=== PATIENT | male | born 1940 | race Caucasian/White ===

== ENCOUNTER → 2020-10-11 | Outpatient (CLI) | payer OTHER ==
[~2020-10-11] VITALS: Ht 177.8 cm; Wt 81.6 kg
[~2020-10-11] MED LIST: CYTOMEL 25 MCG25 MCG PO; DICLOFENAC SOD50 M1 PO; ZYLOPRIM300 MG PO
[2020-10-11 15:05] VITALS: BP 178/94
--- NOTE | 2020-10-11 15:13 | NUR ---
Pain Clinic Assessment: 1. History of Osteoarthritis: HANDS BACK History of Rheumatoid Arthritis: Not Applicable 2. Height: 5 ft. 10 in. 177.8 cm. Weight: 180.0 lb. oz. 81.648 kg. Patient's BMI: 25.8 3. Vital Signs: BP: 178/94 Pulse: 96 Resp: 16 Temp: 02 Sat: 100 ECG Mon: 4. Pain Intensity: 8 5. Fall Risk: Dizziness: Y Needs help standing or walking: N Fallen in the last 3 months: N Fall risk comments: 6. Patient on Blood Thinner: None 7. History of Hypertension: N 8. Opioid Therapy greater than 6 weeks: Opiate Contract Signed: 9. Risk Assessment Tool Provided: LOW-0 10. Functional Assessment Tool: 48/ 11. Recreational Drug Use: Never Drug Type: Tobacco Use: Former Smoker Tobacco Type: Amount or Packs/day: How Many Years: Alcohol Use: Yes Frequency: Daily Quant: 1-2
--- NOTE | 2020-10-12 08:22 | HPC ---
[facility] [place] [address] PAIN MANAGEMENT CONSULTATION Name: JULIANBUDDY HURLEY Room #: REG [facility] MMatthieu.#: [id number] Admission: 10/11/20 Attend Phys: Buddy Crouch DO Discharge: Date of : 41 Report #: [id number] THIS REPORT FOR: cc: Ashli Nova Elizabeth PA Johnson, James E. DO ~ DOC #: [id number] Buddy Crouch DO DATE OF SERVICE: 10/11/2020 CHIEF COMPLAINT: Low back pain, bilateral lower extremity pain with paresthesias. HISTORY OF PRESENT ILLNESS: As you know, the patient is a very pleasant 79-year-old male with intermittent history of low back pain, bilateral lower extremity pain with paresthesias. The patient states his pain began to intensify about one month ago. Prior to this exacerbation of symptoms, he was doing well with the use of [id number]-[id number] medications, rest, relaxation and physician-directed physical therapy done at home. He escalated his medications after pain began to increase to diclofenac and then on to ibuprofen 800 mg dose, but this was unhelpful. He was provided a Medrol Dosepak, which improved his symptoms initially, but as he weaned down on the medication, his pain intensified. Due to lack of improvement with conservative treatment options over the past couple of months, the patient was subsequently referred on to our clinic to discuss interventional treatment options to address lumbar radicular symptoms secondary to central canal stenosis. The patient reports his pain is continuous, steady and constant today. He describes the pain as burning, shooting, cramping, aching, pulling, throbbing, sharp, stabbing, numbness and tingling. Places current pain score at 8/10 daily average at 8/10, worst pain has been is 8/10. The patient states the pain is exacerbated with any type of movement, improves with lying down. He has been referred to our service to discuss treatment options for lumbar radiculopathy. PAST MEDICAL HISTORY: 1. Hypothyroidism. 2. Chronic colon problems. 3. Degenerative joint disease. 4. Osteoarthritis. PAST SURGICAL HISTORY: Transurethral resection of the prostate in 2017. SOCIAL HISTORY: The patient denies tobacco use. Denies IV or illicit drug use. Admits to occasional alcohol beverage. He is currently employed as a physician. He is working, not receiving workmen's compensation nor is he trying to obtain disability benefits. He is not in litigation in regards to pain. He is unaccompanied [place] [address] PAIN MANAGEMENT CONSULTATION Name: BUDDY CLAYTON Room #: REG EKTA Burch#: [id number] Admission: 10/11/20 Attend Phys: Buddy Crouch DO Discharge: Date of : 41 Report #: [id number] REVIEW OF SYSTEMS: Positive for low back pain, right lower extremity pain with paresthesias, heat and cold intolerance secondary to hypothyroidism, osteoarthritis pain and chronic colon problems. All other review of systems negative per 12-point review of systems other than those listed in history of present illness. Pain impact score 48/70, moderate to severe interference of daily activities secondary to pain. ALLERGIES: No known drug allergies. CURRENT MEDICATIONS: Cytomel 25 mg once a day, allopurinol 300 mg once a day, diclofenac 50 mg b.i.d. IMAGING: MRI lumbar spine obtained on 10/07/2020 shows L1-L2 with a small disk bulge and endplate spurring, mild facet and ligamentum flavum hypertrophy leading to mild to moderate foraminal narrowing. No central canal stenosis. L2-L3 shows mild disk bulging, mild facet arthropathy, ligamentum flavum hypertrophy, mild narrowing of the central canal. L3-L4 shows disk bulge, endplate spurring, moderate facet and ligamentum flavum hypertrophy, moderate to severe central canal stenosis and lateral recess stenosis bilaterally. The thecal sac measures 6 mm. L4-L5, there is anterolisthesis and unroofing of the disk with marked facet and ligamentum flavum hypertrophy. Fluid in the joints is noted. Central canal was severely compressed to 5 mm, lateral recess narrowing bilaterally, foraminal narrowing is high-grade as well. L5-S1 disk bulge, mild facet arthropathy, moderate bilateral neural foraminal narrowing, central canal measuring 1.2 cm. PQRS: The patient has known arthritic changes of the lumbar spine, bilateral hands. No rheumatoid arthritis, placing current pain score at 8/10. He is not a fall risk, has not had a fall in last 3 months. He is not on blood thinners nor is he treated for hypertension. He is not on any opioids, has a low opiate addiction potential. Pain impact is 48 of 70. Moderate to severe interference of daily activities secondary to pain. PHYSICAL EXAMINATION: VITAL SIGNS: Blood pressure 178/94, pulse 96, respiratory rate 16 and unlabored. The patient 100% on room air. Height 5 feet 10 inches tall, weight 180 pounds, BMI calculated 25.8. GENERAL: Well-developed, well-nourished, well-hydrated 79-year-old male appearing his stated age. He is placing current pain score at 8/10. HEENT: Normocephalic, atraumatic. Pupils equal, round and responsive. His speech is fluent. The patient is wearing a mask in compliance with COVID-19 regulations. LUNGS: Appear clear. There is no audible wheezing, rhonchi or cough. CARDIOVASCULAR: Regular. No appreciable gallop, no rub. EXTREMITIES: Show no clubbing, no cyanosis and no edema. [facility] [address] [place] [address] PAIN MANAGEMENT CONSULTATION Name: BUDDY CLAYTON Room #: REG EKTA Burch#: [id number] Admission: 10/11/20 Attend Phys: Buddy Crouch DO Discharge: Date of : 41 Report #: [id number] MUSCULOSKELETAL: Lower extremity strength is symmetrical 5/5. Giveaway strength noted on the right when compared to left. This is due to pain generation. Seated straight leg raising positive right. Supine straight leg raising positive right. Fabere's test is negative. Modified Gaenslen's positive for axial low back pain. Gait is antalgic and somewhat shuffling. Stance is slightly forward flexed lumbar spine, loss of lordotic curvature. Intact to light touch from L1 through S2 dermatomes. Deep tendon reflexes are symmetrical at patella and Achilles. ASSESSMENT: 1. Symptomatic lumbar radiculopathy. 2. Severe central canal stenosis of lumbar spine. 3. Severe neural foraminal stenosis of lumbar spine. 4. 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 5. Lumbosacral spondylosis with radiculopathy. 6. Facet arthropathy, lumbar spine. 7. Chronic intractable pain. PLAN: 1. Based on today's physical exam, the history, the patient has provided, the description the patient uses in regard to pain as well as the distribution of symptoms, the likely source of the patient's pain is central canal stenosis. This is confirmed with the MRI dated 10/07/2020, which shows severe central canal stenosis, severe lateral recess stenosis and severe foraminal stenosis at the L4-L5 level consistent with the patient's pain distribution. The patient and I discussed the findings of his MRI and how they correlate to his symptoms. After this discussion, we discussed the treatment options, following was discussed with the patient today. We discussed physical therapy, stretching exercises and core strengthening in a more formalized fashion. The patient has been doing physician directed home exercise for some time as well as utilizing qkps-bxa-lavzpnb medications, rest, relaxation, but has noted no significant pain improvement. He escalated his medication dosing to add a Medrol Dosepak. This did provide transient improvement in symptoms and the fact that he failed this, he was then sent on to our clinic. We discussed medication adjustments adding neuropathic pain medications for which he is not currently on these. We could include amitriptyline, nortriptyline, Cymbalta, Lyrica or gabapentin. We discussed lumbar epidural injection under fluoroscopic guidance for which the patient was referred to our clinic. We also discussed with the patient a spinal cord stimulator/dorsal column stimulator as a treatment course. We also discussed surgical options with the patient, decompressing the L4-L5 level. After reviewing the risks and benefits of all the proposed treatment options, the patient chose to begin with a lumbar epidural injection under fluoroscopic guidance. [address] [address] PAIN MANAGEMENT CONSULTATION Name: BUDDY CLAYTON Room #: REG CLYo Burch#: [id number] Admission: 10/11/20 Attend Phys: Buddy E. Miko, DO Discharge: Date of : 41 Report #: [id number] 2. The patient has been advised risks and benefits of a lumbar epidural injection. These risks include, but are not necessarily limited to bleeding, bruising, infection, worsening pain, no relief of pain, also risk of temporary or permanent muscle weakness, temporary or permanent nerve damage, possible paralysis, post-dural puncture headache and . The patient states understood and wished to proceed. 3. No medication changes made at today's visit. We recommend the patient continue current medical therapy as prior prescribed. 4. We plan to see the patient back in followup visit in 30 days. At that time, review the efficacy of today's epidural injection and determine next in the series of epidural injections might be necessary. 5. We wish to thank the referring physician for the opportunity to see this patient in consultation. We will keep you apprised of his response to treatment as we address lumbar radicular symptoms secondary to central canal stenosis. Again, we wish to thank you for the opportunity to see the patient in consultation. PROCEDURE NOTE DESCRIPTION OF PROCEDURE: L5-S1 interlaminar epidural steroid injection under fluoroscopic guidance using a right parasagittal approach. This is the first procedure of the first series that the patient is undergoing. After obtaining written consent, the patient was taken back to the fluoroscopy suite, placed in a prone position with pillow under the abdomen to decrease lumbar lordosis. The skin overlying the lumbosacral area was then prepped and draped in aseptic fashion. The L5-S1 vertebral interspace was then identified by AP fluoroscopy. The skin and subcutaneous tissue overlying the target site of injection was anesthetized with 3 mL 1% lidocaine. A 20-gauge 3-1/2 inch Tuohy needle was then advanced under fluoroscopic guidance towards the epidural space using a right parasagittal approach. The epidural space was identified using loss of resistance to air technique. After negative aspiration for heme or cerebrospinal fluid, a total of 1 mL of Omnipaque was injected. A lumbar epidurogram was confirmed using both AP and lateral fluoroscopy. After negative aspiration for heme or cerebrospinal fluid, 5 mL of a solution containing 2 mL 40 mg per mL 80 mg total triamcinolone along with 3 mL of preservative-free lidocaine 1% was injected in increments. Contrast spread was noted in the posterior epidural space. The needle was then retracted approximately half way and needle tract flushed with 1 mL of 1% lidocaine. Needle was then removed. There were no apparent sensory or motor deficits in the lower extremity following the procedure. A sterile bandage was placed over the injection site. The heart rate, pulse, oximetry and blood pressure were continuously monitored [address] [address] PAIN MANAGEMENT CONSULTATION Name: BUDDY CLAYTON Room #: REG [facility].#: [id number] Admission: 10/11/20 Attend Phys: Buddy Crouch DO Discharge: Date of : 41 Report #: [id number] after the procedure. There were no apparent complications. The patient tolerated the procedure well and was carefully escorted to the recovery room in stable condition. There were no apparent complications. After meeting discharge criteria, the patient was then discharged home. Buddy Crouch DO JEJ/EKT <ELECTRONICALLY SIGNED> By: Buddy Crouch DO 10/12/20 0822 [id number] [id number] Buddy Crouch DO /nt
== END | disposition home or self-care (01) ==
LOC: PAIN 07:59
PROVIDERS: ATTEND Anesthesiology Pain Medicine
DX: M47.27 Other spondylosis with radiculopathy, lumbosacral region (principal); M48.061 Spinal stenosis, lumbar region without neurogenic claudication; M47.26 Other spondylosis with radiculopathy, lumbar region; G89.29 Other chronic pain; M19.90 Unspecified osteoarthritis, unspecified site; E03.9 Hypothyroidism, unspecified; Z98.890 Other specified postprocedural states; Z79.899 Other long term (current) drug therapy

== ENCOUNTER → 2021-02-08 | Outpatient (CLI) | payer OTHER ==
[~2021-02-08] VITALS: Ht 177.8 cm; Wt 83.5 kg
[~2021-02-08] MED LIST changes: +ACID CONTROLLER20 MG PO
[2021-02-08 11:33] VITALS: BP 171/81
--- NOTE | 2021-02-08 11:37 | NUR ---
Pain Clinic Assessment: 1. History of Osteoarthritis: HANDS BACK History of Rheumatoid Arthritis: Not Applicable 2. Height: 5 ft. 10 in. 177.8 cm. Weight: 184.0 lb. oz. 83.462 kg. Patient's BMI: 26.4 3. Vital Signs: BP: 171/81 Pulse: 66 Resp: 16 Temp: 02 Sat: 99 ECG Mon: 4. Pain Intensity: 7 5. Fall Risk: Dizziness: N Needs help standing or walking: N Fallen in the last 3 months: N Fall risk comments: 6. Patient on Blood Thinner: None 7. History of Hypertension: N 8. Opioid Therapy greater than 6 weeks: Opiate Contract Signed: 9. Risk Assessment Tool Provided: LOW-0 10. Functional Assessment Tool: 48/ 11. Recreational Drug Use: Never Drug Type: Tobacco Use: Former Smoker Tobacco Type: Amount or Packs/day: How Many Years: Alcohol Use: Yes Frequency: Quant:
--- NOTE | 2021-02-14 08:14 | HPC ---
[facility] [place] [address] PAIN MANAGEMENT CONSULTATION Name: JULIANBUDDY HURLEY Room #: REG [facility] MMatthieu.#: [id number] Admission: 02/08/21 Attend Phys: Buddy Crouch DO Discharge: Date of : 41 Report #: [id number] THIS REPORT FOR: cc: Ashli Nova Elizabeth PA Johnson, James E. DO ~ DATE OF SERVICE: 02/08/2021 CHIEF COMPLAINT: Low back pain, bilateral lower extremity pain with paresthesias. HISTORY OF PRESENT ILLNESS: As you know, the patient is a very pleasant 80-year-old male who reports intermittent history of low back pain, bilateral lower extremity pain with paresthesias. The patient has been diagnosed with central canal stenosis of lumbar spine leading to lumbar radiculopathy. He has undergone epidural injections under fluoroscopic guidance with excellent benefit. The most recent injection according to the patient, gave 90% improvement in overall pain, but unfortunately his symptoms did reoccur. He believes he may have exacerbated symptoms while on a trip where he was carrying luggage not only for himself, but his as she was disabled secondary to similar condition. He has been trialing eiaf-dpc-[id number] medication without benefit. He was returning today to undergo next in the series of lumbar epidural injections in hopes of building on success of previous intervention. The patient has had no changes in his medication management that would preclude him from having an epidural injection provided today. ALLERGIES: No known drug allergies. CURRENT MEDICATIONS: Cytomel, allopurinol, diclofenac. SOCIAL HISTORY: The patient denies tobacco use. Denies IV or illicit drug use. Admits occasional alcohol beverage. He is currently employed, working, not receiving workmen's compensation, unaccompanied today. IMAGING: No new imaging available. PQRS: The patient has known arthritic changes of the cervical spine, lumbar spine, and hands. No rheumatoid arthritis. He is placing pain score today at 7/10. He is not a fall risk, has not had a fall in last 3 months. He is not on blood thinners nor is he treated for hypertension. He is not on chronic opioids, has a low opioid addiction potential. Pain impact is 48/70, moderate interference secondary to pain. PHYSICAL EXAMINATION: VITAL SIGNS: Blood pressure 171/81, pulse is 66, respiratory rate 16 and unlabored. The patient 99% on room air. Height 5 feet 10 inches tall, weight 184 pounds, BMI calculated 26.4. [address] [address] PAIN MANAGEMENT CONSULTATION Name: BUDDY CLAYTON [id number] Admission: 02/08/21 Attend Phys: Buddy Crouch DO Discharge: Date of : 41 Report #: [id number] GENERAL: Well-developed, well-nourished, well-hydrated, 79-year-old male appearing stated age, pain is rated today 7/10. HEENT: Normocephalic, atraumatic. Pupils equal, round and responsive. He is deemed a good historian. He is wearing a mask in compliance with COVID-19 regulations. EXTREMITIES: Show no clubbing, no cyanosis. No appreciable edema. MUSCULOSKELETAL: Lower extremity strength remains symmetrical 5/5, though there is giveaway strength noted on the right when compared to left. Seated straight leg raising negative. Supine straight leg raising is positive. Kapil's test is negative. Gait is antalgic. He is utilizing a cane for ambulation. Muscle bulk and tone appears symmetrical. ASSESSMENT: 1. Symptomatic lumbar radiculopathy. 2. Severe central canal stenosis of lumbar spine. 3. Severe neural foraminal stenosis of lumbar spine. 4. 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 5. Lumbosacral spondylosis with radiculopathy. 6. Facet arthropathy of lumbar spine. 7. Chronic intractable pain. PLAN: 1. The patient returns today in followup visit requesting to undergo lumbar epidural injection under fluoroscopic guidance. He received excellent benefit with the initial epidural injection, reporting 90% improvement in overall pain. Unfortunately, his symptoms reoccurred after attempting to carry luggage on a trip for both he and his . This led to exacerbation of symptoms. He denied any other injury or trauma. He returns today requesting to undergo lumbar epidural injection in hopes of improving pain. He has been advised risks and benefits of the procedure, states understood and wished to proceed. 2. No medication changes made at today's visit. We recommend the patient continue current medical therapy as prior prescribed. 3. We plan to see the patient back in followup visit on an as needed basis for the next in the series of epidural injections. We are hopeful the patient will see good and prolonged benefit with today's procedure. PROCEDURE NOTE: DESCRIPTION OF PROCEDURE: L5-S1 interlaminar epidural steroid injection under fluoroscopic guidance. This is the second procedure of the first series that the patient is undergoing. After obtaining written consent, the patient was taken back to the fluoroscopy suite, placed in a prone position with pillow under the abdomen to decrease lumbar lordosis. The skin overlying the lumbosacral area was then prepped and [address] [address] PAIN MANAGEMENT CONSULTATION Name: BUDDY CLAYTON Room #: REG [facility]#: [id number] Admission: 02/08/21 Attend Phys: Buddy Crouch DO Discharge: Date of : 41 Report #: [id number] draped in aseptic fashion. The L5-S1 vertebral interspace was then identified by AP fluoroscopy. The skin and subcutaneous tissue overlying the target site of injection was anesthetized with 3 mL 1% lidocaine. A 20-gauge 3-1/2 inch Tuohy needle was then advanced under fluoroscopic guidance towards the epidural space using a parasagittal approach. The epidural space was identified using loss of resistance to air technique. After negative aspiration for heme or cerebrospinal fluid, a total of 1 mL of Omnipaque was injected. A lumbar epidurogram was confirmed using both AP and lateral fluoroscopy. After negative aspiration for heme or cerebrospinal fluid, 5 mL of a solution containing 2 mL 40 mg per mL 80 mg total triamcinolone along with 3 mL of preservative-free lidocaine 1% was injected in increments. Contrast spread was noted in the posterior epidural space. The needle was then retracted approximately half way and needle tract flushed with 1 mL of 1% lidocaine. Needle was then removed. There were no apparent sensory or motor deficits in the lower extremity following the procedure. A sterile bandage was placed over the injection site. The heart rate, pulse, oximetry and blood pressure were continuously monitored after the procedure. There were no apparent complications. The patient tolerated the procedure well and was carefully escorted to the recovery room in stable condition. There were no apparent complications. After meeting discharge criteria, the patient was then discharged home. <ELECTRONICALLY SIGNED> By: Buddy Crouch DO 02/14/21 0814 [id number] Buddy Crouch DO /nt
== END | disposition home or self-care (01) ==
LOC: PAIN 11-09 09:50
PROVIDERS: ATTEND Anesthesiology Pain Medicine
DX: M47.27 Other spondylosis with radiculopathy, lumbosacral region (principal); M48.061 Spinal stenosis, lumbar region without neurogenic claudication; M47.26 Other spondylosis with radiculopathy, lumbar region; G89.29 Other chronic pain; M19.90 Unspecified osteoarthritis, unspecified site; Z98.890 Other specified postprocedural states; Z79.899 Other long term (current) drug therapy